=== PATIENT | female | born 1945 | race Caucasian/White ===

== ENCOUNTER 2020-07-29 14:37 | Inpatient (IN) | payer MEDICARE, BC ==
[~2020-07-29] VITALS: Ht 167.6 cm; Wt 95.3 kg
[~2020-07-29 14:37] MED LIST: ACETAMINOPHEN325 M1 PO; ALLEGRA-D 12 H1 EAC1 PO; ALLOPURINOL 10100 M1 PO; ASPIRIN81 M2 PO; B-100 COMPLEX1 EAC1 PO; CO Q-10200 MG PO; CORAL CALCIUM1 EAC2 PO; CORAL CALCIUM1 GM PO; COUMADIN 4 MG TA4 M1; DIGOXIN250 MCG PO; DOXEPIN 75 MG C75 MG PO; DUONEB 2.5-0.5 M3 ML INH; ELIQUIS5 MG PO; EVISTA PO; FERRALET PO; FLUCONAZOLE PO; FOSAMAX 70 MG T70 M1 PO; GABAPENTIN PO; GABAPENTIN100 MG PO; IRON PO; IRON TABLET1 EACH PO; IRON325; KLOR-CON 1010 MEQ PO; LASIX 20 MG TAB20 MG; LASIX 40 MG TAB40 M2 PO; LEVOTHROID PO; LEVOTHYROXIN0.125 M1 PO; LUMITENE30 MG PO; MAGNES PO; MAGNESIUM250 M1 PO; MELATONIN3 MG PO; MUCINEX600 MG PO; MULTIVITAMINS PO; MULTIVITAMINS1 EAC7 PO; NEURONTIN 300300 M1 PO; PHOS-NAK PACKE1 EACH PO; POTASSIUM PO; POTASSIUM20; PREDNISONE 5 MG5 MG PO; PREMARIN PO; PREMARIN VAGI42.5 G1 TOP; PREMARIN0.3 MG PO; PROVENTIL; PROZAC20 MG PO; SEROQUEL 50 MG50 M1 PO; SINGULAIR 10 MG10 M1 PO; SINGULAIR PO; THEO-24300 MG PO; THEOPHYLLINE E100 M1 PO; TRAMADOL 50 MG50 MG; TRAMADOL 50 MG50 MG PO; VANCO1GM IVPB; VENTOLIN HFA 1818 GM INH; VISTARIL 25 MG25 M1 PO; VITAMIN A10000 UNI3 PO; VITAMIN C + RO500 MG PO; VITAMIN D 5050000 I1 PO; VITAMIN D1000 UNI1 PO; VITAMIN E400 UNIT PO; XARELTO20 MG PO; ZOCOR40 MG PO; ZYVOX600 MG PO
[2020-07-29 14:45] VITALS: BP 152/90
[2020-07-29] MEDS ORDERED: BREO ELLIPTA 21 EACH INH (14:52)
[2020-07-29] MEDS ORDERED: AZO BLADDER CO300 MG PO (14:53)
[2020-07-29] MEDS ORDERED: PROAIR HFA8.5 GM INH (14:53)
[2020-07-29] MEDS ORDERED: TYLENOL 8 HOUR650 MG PO (14:53)
[2020-07-29 16:30] LABS: ABSOLUTE EOSINOPHILS 0.1 thou/uL (0.0-0.7); ABSOLUTE LYMPHOCYTES 1.3 thou/uL (0.8-5.3); ABSOLUTE MONOCYTES 0.6 thou/uL (0.0-1.2); BASOPHILS 0.5 %; EOSINOPHILS 2.1 %; HEMATOCRIT 39.6 % (37.0-47.0); LYMPHOCYTES 18.3 %; MCH 27.6 pg (26.0-34.0); MCHC 32.9 g/dL (28.0-37.0); MCV 83.9 fL (80.0-100.0); MONOCYTES 7.9 %; MPV 8.1 fl. (7.2-11.1); NUCLEATED RBCS 0 /100WBC; PLATELET COUNT* 214 thou/uL (150-400); POLYS 71.2 %; RBC 4.72 mil/uL (4.20-5.00); WBC 7.1 thou/uL (4.0-11.0)
[2020-07-29 16:36] LABS: CALCIUM 9.2 mg/dL (8.5-10.1); CREATININE 0.9 mg/dL (0.6-1.3); POTASSIUM 4.3 mmol/L (3.5-5.1)
[2020-07-29 16:40] LABS: APTT 27.5 Seconds (25.0-31.3); PROTIME 10.9 Seconds (9.20-11.50)
[2020-07-29 16:47] LABS: TOTAL BILIRUBIN 0.3 mg/dL (<0.1-1.0); TOTAL PROTEIN 6.3 g/dL (6.4-8.2)
[2020-07-29 18:00] VITALS: BP 143/79
[2020-07-29 18:25] VITALS: BP 161/81
--- NOTE | 2020-07-29 19:10 | NUR ---
THIS NURSE AGREES WITH ASSESSMENT BY KIT NERI
--- NOTE | 2020-07-29 19:27 | NUR ---
PT ALERT AND ORIENTED X 4. PT TRANSFERRED FROM ER ON CART. ASSESSMENT DOCUMENTED. PAIN MANAGEABLE AT THIS TIME. RATE 3/10. NO RESPIRATORY DISTRESS NOTED. CALL LIGHT WITHIN REACH. IVF INFUSING ORDERED. WILL CONTINUE TO MONITOR.
[2020-07-29 19:45] VITALS: BP 137/68
--- NOTE | 2020-07-30 03:56 | NUR ---
PT A&O X 4. VSS ON RA. MEDS GIVEN ORDERED. PAIN 3/10 WITH MOVEMENT ONLY. SCHEDULED TRAMADOL GIVEN WITH PRN TYLENOL PER PT REQUEST. IVF INFUISING. CALL LIGHT WITHIN REACH. WILL CONTINUE TO MONITOR.
[2020-07-30 04:20] LABS: ABSOLUTE EOSINOPHILS 0.2 thou/uL (0.0-0.7); ABSOLUTE LYMPHOCYTES 1.8 thou/uL (0.8-5.3); ABSOLUTE MONOCYTES 0.5 thou/uL (0.0-1.2); ABSOLUTE NEUTROPHILS 3.9 thou/uL (1.6-8.1); BASOPHILS 0.6 %; HEMATOCRIT 35.9 % (37.0-47.0); HEMOGLOBIN 11.9 gm/dL (12.0-15.0); LYMPHOCYTES 27.5 %; MCH 27.8 pg (26.0-34.0); MCV 84.1 fL (80.0-100.0); MONOCYTES 8.4 %; MPV 8.7 fl. (7.2-11.1); NUCLEATED RBCS 0 /100WBC; PLATELET COUNT* 197 thou/uL (150-400); POLYS 60.5 %; RBC 4.27 mil/uL (4.20-5.00); WBC 6.5 thou/uL (4.0-11.0)
[2020-07-30 04:26] LABS: CALCIUM 8.4 mg/dL (8.5-10.1); CREATININE 0.8 mg/dL (0.6-1.3); POTASSIUM 4.4 mmol/L (3.5-5.1)
[2020-07-30 07:35] VITALS: BP 128/80
--- NOTE | 2020-07-30 09:13 | NUR ---
CM SPOKE TO THE PT TO DISCUSS CM ASSESSMENT. PT A&O, NORMALLY INDEPENDENT WITH ADL'S, AND DRIVES SHORT DISTANCES. PT RESIDES AT HOME WITH HANDICAPPED DTR, AND THEY ASSIST ONE ANOTHER NEEDED. PT INFORMS THAT HER OTHER DTR 'LIVES DOWN THE ROAD AND CAN ALSO ASSIST IF NEEDED'. PT HAS SURGICAL SERVICES ASSISTANT WHO CLEANS THE HOME WEEKLY. PT OWNS 2 WALKERS, BATH BENCH, AND HOSPITAL BED. PT INFORMS THAT SHE ONLY USES THE WALKER OCCATIONALLY. PT HAS PAST HX OF HH. PT HAS 0 HX OF SNF. PT/OT ORDERED. PT MAY NEED HH AT D/C. HOWEVER PT RESISTANT AND NOT SURE THAT HH IS NEEDED. CM WILL REMAIN AVAILABLE TO ASSIST AND FOLLOW WITH D/C PLANNING NEEDED.
[2020-07-30] MEDS ORDERED: TRAMADOL 50 MG50 MG PO (10:38)
--- NOTE | 2020-07-30 12:13 | NUR ---
THIS NURSE AGREES WITH MORNING ASSESSMENT
[2020-07-30 12:36] VITALS: BP 128/80
--- NOTE | 2020-07-30 15:10 | EKG ---
[place] [address] ELECTROCARDIOGRAM REPORT Name: SHIV FREEMAN Room: [address] ADM IN M.R.#: [id number] Admission: 07/29/20 Attend Phys: Freedom Jeff, Discharge: Date of : 41 Date of Service: 07/29/20 1604 Report #: [id number] THIS REPORT FOR: //name// [facility] ED Test Date: 2020-07-29 Test Time: 16:04:50 Pat Name: SHIV FREEMAN Department: Room: [facility] Gender: F Refund Clerk: : 1945 Requested By: Gali Barrios Order Number: [id number] MD: Rasta Gray Measurements Intervals Hitchcock Rate: 68 P: 34 OR: 216 QRS: 33 QRSD: 111 T: 53 QT: 392 QTc: 417 Interpretive Statements Sinus rhythm Borderline prolonged OR interval Baseline wander in lead(s) V2 Compared to ECG 10/30/2016 09:24:05 Sinus tachycardia no longer present Ventricular premature complex(es) no longer present ST (T wave) deviation no longer present Electronically Signed On 07-30-2020 15:10:45 MONOTYPE MECHANIC by Rasta Gray [email or web address] <ELECTRONICALLY SIGNED> By: Rasta Gray MD, [facility] 07/30/20 1510 1604 1604 Rasta Gray MD, [facility] /EPI
--- NOTE | 2020-07-30 16:03 | NUR ---
TELEPHONE ORDER/READ BACK. OK TP DISCHARGE ON 07/31 ANYTIME AFTER MIDNIGHT. PT REMAINS STABLE. PT INFORMED SHE CAN LEAVE AFTER MIDNIGHT. STATES SHE WILL CALL HER FAMILY AND COORDINATE DISCHARGE WITH NURSING STAFF.
[2020-07-30 16:10] VITALS: BP 126/67
--- NOTE | 2020-07-30 16:26 | NUR ---
PT DECLINED HOME HEALTH. PT HAS ASSISTIVE DEVICES AT HOME. PT HAS FAMILY SUPPORT AT HOME. PT STEADY WITHOUT ASSISTANCE. PT DRESSED HERSELF AND IS SITTING IN THE CHAIR AT THIS TIME.
--- NOTE | 2020-07-30 17:06 | NUR ---
PT REMAINS ALERT AND ORIENTED X 4. PT STEAADY WITHOUT ASSIST. NO SIGNS OF RESPIRATORY DISTRESS NOTED. PT SITTING IN A CHAIR AND DRESSED AT THIS TIME. CALL LIGHT REMAINS WITHIN REACH. NO NEEDS AT THIS TIME. WILL CONTINUE TO MONITOR.
[2020-07-30 18:52] VITALS: BP 128/80
[2020-07-30 20:07] VITALS: BP 128/80
--- NOTE | 2020-07-31 08:41 | NUR ---
LATE ENTRY JUL.30 133-PT. LIVES WITH HER DAUGHTER,WHO IS DISABLED BUT HIGH FUNCTIONING. THEY 'HELP' EACHOTHER. PT.DOING WELL TODAY AND WANTING TO GO HOME TODAY. WANTS HER TO STAY ONE MORE DAY. SHE DECLINED HOME HEALTH. HAS A FWW FOR HOME USE. SHE SAID RIB PAIN IS WELL CONTROLLED.
== END 2020-07-31 00:15 | disposition home or self-care (01) | DRG 543 ==
LOC: M.ERS 14:37 → M.3W 17:24 → M.TBA-ER 17:24 → M.3W 18:11
PROVIDERS: Physician Assistant; ADMIT Internal Medicine; ATTEND Internal Medicine
DX: M80.0AXA Age-related osteoporosis with current pathological fracture, other site, initial encounter for fracture (principal); E44.1 Mild protein-calorie malnutrition; J91.8 Pleural effusion in other conditions classified elsewhere; I48.91 Unspecified atrial fibrillation; M19.90 Unspecified osteoarthritis, unspecified site; M10.9 Gout, unspecified; J44.9 Chronic obstructive pulmonary disease, unspecified; G89.29 Other chronic pain; E78.5 Hyperlipidemia, unspecified; M06.9 Rheumatoid arthritis, unspecified; K57.90 Diverticulosis of intestine, part unspecified, without perforation or abscess without bleeding; E03.9 Hypothyroidism, unspecified; Z20.828 Contact with and (suspected) exposure to other viral communicable diseases; Z90.49 Acquired absence of other specified parts of digestive tract; Z90.710 Acquired absence of both cervix and uterus; Z98.1 Arthrodesis status; Z79.01 Long term (current) use of anticoagulants; Z79.899 Other long term (current) drug therapy; Z88.1 Allergy status to other antibiotic agents; Z91.040 Latex allergy status; Z88.5 Allergy status to narcotic agent; Z88.0 Allergy status to penicillin; Z88.2 Allergy status to sulfonamides; Z88.8 Allergy status to other drugs, medicaments and biological substances; Z91.048 Other nonmedicinal substance allergy status; Z91.09 Other allergy status, other than to drugs and biological substances; Z68.33 Body mass index [BMI] 33.0-33.9, adult

== ENCOUNTER → 2021-01-02 | Outpatient (CLI) | payer MEDICARE, BC ==
[~2021-01-02] MED LIST changes: +AZO BLADDER CO300 MG PO; +BREO ELLIPTA 21 EACH INH; +PROAIR HFA8.5 GM INH; +TYLENOL 8 HOUR650 MG PO
== END ==
LOC: M.PC 09:16
PROVIDERS: ATTEND Physical Medicine & Rehabilitation
DX: M16.12 Unilateral primary osteoarthritis, left hip (principal); M25.552 Pain in left hip; I48.91 Unspecified atrial fibrillation; J44.9 Chronic obstructive pulmonary disease, unspecified; Z79.899 Other long term (current) drug therapy; Z79.891 Long term (current) use of opiate analgesic

== ENCOUNTER → 2021-01-09 | Outpatient (CLI) | payer MEDICARE, BC | END | disposition home or self-care (01) | LOC: M.PC 08:50 | PROVIDERS: ATTEND Physical Medicine & Rehabilitation | DX: M25.552 Pain in left hip (principal); M16.12 Unilateral primary osteoarthritis, left hip; G89.29 Other chronic pain; I10 Essential (primary) hypertension; E78.5 Hyperlipidemia, unspecified; J44.9 Chronic obstructive pulmonary disease, unspecified; M81.0 Age-related osteoporosis without current pathological fracture; M10.9 Gout, unspecified; I48.91 Unspecified atrial fibrillation; Z98.890 Other specified postprocedural states; Z79.899 Other long term (current) drug therapy; Z88.0 Allergy status to penicillin; Z88.2 Allergy status to sulfonamides; Z88.6 Allergy status to analgesic agent; Z91.040 Latex allergy status; Z79.01 Long term (current) use of anticoagulants ==

== ENCOUNTER → 2021-01-23 | Outpatient (CLI) | payer MEDICARE, BC | LOC: M.PC 08:08 | PROVIDERS: ATTEND Physical Medicine & Rehabilitation | DX: M16.12 Unilateral primary osteoarthritis, left hip (principal); M25.552 Pain in left hip; I48.91 Unspecified atrial fibrillation; J44.9 Chronic obstructive pulmonary disease, unspecified; Z88.0 Allergy status to penicillin; Z88.5 Allergy status to narcotic agent ==